=== PATIENT | male | born 1975 | race Caucasian/White ===

== ENCOUNTER 2018-03-22 07:19 | Emergency (ER) | payer MEDICAID ==
[~2018-03-22] VITALS: Ht 165.1 cm; Wt 79.5 kg
[2018-03-22 07:21] VITALS: BP 127/78
== END 2018-03-22 08:26 | disposition home or self-care (01) ==
LOC: ER 07:19 → EDBD 07:19 → ER 08:26
DX: R20.2 Paresthesia of skin (principal); M79.601 Pain in right arm
CPT/HCPCS: 82962; 99282; Z7610